=== PATIENT | male | born 2005 | race Caucasian/White ===

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

== ENCOUNTER → 2024-10-13 | Outpatient (CLI) | payer OTHER, BC | END | disposition home or self-care (01) | LOC: WOUNDCARE 10:57 | PROVIDERS: ATTEND Nurse Practitioner Family | DX: T25.322A Burn of third degree of left foot, initial encounter (principal); T31.0 Burns involving less than 10% of body surface; L53.9 Erythematous condition, unspecified; F17.210 Nicotine dependence, cigarettes, uncomplicated; X08.8XXA Exposure to other specified smoke, fire and flames, initial encounter; Y93.89 Activity, other specified; Y92.89 Other specified places as the place of occurrence of the external cause; Y99.8 Other external cause status ==

== ENCOUNTER → 2024-10-20 | Outpatient (CLI) | payer BC | END | disposition home or self-care (01) | LOC: WOUNDCARE 00:22 | PROVIDERS: ATTEND Nurse Practitioner Family | DX: T25.322D Burn of third degree of left foot, subsequent encounter (principal); T31.0 Burns involving less than 10% of body surface; L53.9 Erythematous condition, unspecified; R60.9 Edema, unspecified; F17.290 Nicotine dependence, other tobacco product, uncomplicated; X08.8XXD Exposure to other specified smoke, fire and flames, subsequent encounter ==

== ENCOUNTER → 2024-10-25 | Outpatient (CLI) | payer BC | END | disposition home or self-care (01) | LOC: WOUNDCARE 01:54 | PROVIDERS: ATTEND Nurse Practitioner Family | DX: T25.322D Burn of third degree of left foot, subsequent encounter (principal); T31.0 Burns involving less than 10% of body surface; R60.9 Edema, unspecified; F17.210 Nicotine dependence, cigarettes, uncomplicated; X08.8XXD Exposure to other specified smoke, fire and flames, subsequent encounter ==

== ENCOUNTER → 2024-11-01 | Outpatient (CLI) | payer BC | END | disposition home or self-care (01) | LOC: WOUNDCARE 04:02 | PROVIDERS: ATTEND Nurse Practitioner Family | DX: T25.222D Burn of second degree of left foot, subsequent encounter (principal); T31.0 Burns involving less than 10% of body surface; L53.9 Erythematous condition, unspecified; F17.210 Nicotine dependence, cigarettes, uncomplicated; X08.8XXD Exposure to other specified smoke, fire and flames, subsequent encounter ==